=== PATIENT | male | born 1965 | race African-American/Black ===

== ENCOUNTER 2024-08-16 19:45 | Emergency (ER) | payer MEDICAID, SELFPAY ==
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
[2024-08-16 20:18] VITALS: BP 130/80; PULSE 98; RESP 16; TEMP 36.9; O2SAT 97; BMI 27.3
--- NOTE | 2024-08-16 22:03 | PC.NURSE ---
Pt currently in MRI
[2024-08-16 22:52] VITALS: BP 133/75; PULSE 76; RESP 16; TEMP 36.7; O2SAT 98
--- NOTE | 2024-08-16 22:52 | PC.NURSE ---
Pt back from MRI, sitting up on stretcher, continues to c/o bilat arm numbness/tingling, awaiting MRI results.
[2024-08-16 23:17] VITALS: BP 140/85; PULSE 70; RESP 17; TEMP 36.8; O2SAT 100
== END 2024-08-16 23:18 | disposition home or self-care (01) ==
PROVIDERS: Emergency Provider Emergency Medicine; PCP Internal Medicine
DX: S16.1XXA Strain of muscle, fascia and tendon at neck level, initial encounter (principal); S20.229A Contusion of unspecified back wall of thorax, initial encounter; V23.49XA Other motorcycle driver injured in collision with car, pick-up truck or van in traffic accident, initial encounter; R20.2 Paresthesia of skin; Y93.89 Activity, other specified; Y92.414 Local residential or business street as the place of occurrence of the external cause; Y99.9 Unspecified external cause status
CPT/HCPCS: 72040; 72141; 73130; 99284; 99285

== ENCOUNTER → 2024-08-16 20:22 | Outpatient (BNV) | payer MEDICAID, SELFPAY | PROVIDERS: Emergency Provider Emergency Medicine; PCP Internal Medicine; Visit Provider Specialist | DX: M50.322 Other cervical disc degeneration at C5-C6 level (principal); M79.641 Pain in right hand | CPT/HCPCS: 72040; 72141; 73130 ==

== ENCOUNTER 2024-12-07 16:33 | Outpatient (REF) | payer MEDICAID, SELFPAY ==
--- OUTSIDE RECORDS SUMMARY | 2020-02-22 04:38 | XMS_ITS | Continuity of Care Document ---
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 [address] [place] [address], [id number], [place]. tel:[phone] Family History Family Member Type Diagnosis Age At Onset No Information Payers Payer name Insurance type Covered green party ID Authoraurea valjuan alberto(s) D General Assistance [id number] Social History Type Description Quantity Date Captured Comments Sex Male Smoking Status No Information Sexual Orientation Straight or heterosexual Feb Gender Identity Male Chief Complaint And Reason For Visit No Information Plan Of Treatment Date Type Action Status Goal FOBT. Due on due Goal Colorectal cance r screen, stool DNA QuARTS with hemoglobin GISSEL. Due on due Goal Diabetes Screening. Due on D due Goal Depression screening. Due on due Goal HIV-1 AG W/HIV-1 & HIV-2 AB. Due on due Goal Lipid Panel. Due on due Goal Annual PE. Due on 0 due Goal Colonoscopy. Due on due Goal HEPATITIS C AB TEST. Due on due Goal BMI counseling d ocumented in Health Promotion Plan. Due on due History Of Present Illness Encounter Date Complaint History Of Prese nt Illness No Information Instructions Date Instruction Additional Infor mation No Information Assessments Type Assessment Date No Information
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
[2024-12-07 16:51] LABS: MANUAL DIFF FLAG NO
[2024-12-07 17:48] LABS: Hematocrit 41.3 % (42.0-52.0); Hemoglobin 14.3 g/dl (14.0-18.0); Imm Gran Abs Auto 0.01 X10*3/uL (0.00-0.03); Imm Gran Pct Auto 0.2 % (0.0-0.4); Lymphocytes Absolute Auto 2.0 X10*3/uL (1.2-4.9); Mean Corpuscular HGB Conc 34.6 g/dl (31.0-36.0); Mean Corpuscular Hemoglobin 31.2 pg (27.0-33.0); Mean Corpuscular Volume 90.2 fL (80.0-98.0); NRBC Abs Auto 0.020 X10*3/uL (0.0-0.012); NRBC Pct Auto 0.4 /100WBC (0.0-0.2); Platelet Count 227 X10*3/uL (160-400); Red Blood Count 4.58 X10*6/uL (4.60-5.80); White Blood Count 5.7 X10*3/uL (4.8-10.8)
[2024-12-07 18:26] LABS: Alanine Aminotransferase 19 U/L (0-40); Albumin Level 4.4 g/dL (3.5-5.0); Alkaline Phosphatase 71 U/L (39-117); Anion Gap 10 (12-20); Aspartate Amino Transferase 38 U/L (5-37); Blood Urea Nitrogen 13 mg/dL (9-16); Calcium 9.1 mg/dL (8.4-10.2); Carbon Dioxide 28 mmol/L (22-29); Chloride 107 mmol/L (96-108); Cholesterol 151 mg/dL (<200); Estimated Glomerular Filt Rate > 60; HDL Cholesterol 47 mg/dL (>40); Potassium 4.3 mmol/L (3.3-5.1); Sodium 141 mmol/L (135-145); Total Protein 7.2 g/dL (6.5-8.0); Triglycerides 132 mg/dL (<150)
--- OUTSIDE RECORDS SUMMARY | 2024-12-07 18:34 | XMS_ITS | Encounter Summary ---
Author Organization [employer] Address [address] [place] [address] [place] [address] Care Team Providers Care Telegraph Plant Maintainer Name Role Phone Natalee Gannon MD Primary Care Provider [phone] Reason for Visit * Reason Comments Care Coordination CHW outreach for SDO H food needs-referral completed Encounter Details Date Type Department Care Team (Latest Contact Info) Description 12/07/2024 Patient Outreach [facility] [address] [place] [address] Natalee Gannon MD [address] [place] [phone] Care Coordination (CHW outreach for SDOH food needs-referral completed /) Social History Tobacco Use Types Packs/Day Years Used Date Smoking Tobacco: Every Day Cigarettes 1 45.8 Started: 1977 Smokeless Tobacco: Former Alcohol Use Standard Drinks/Week Comments Not Currently [...] is your housing situation today? I have axel ghosh 12/07/[address] you [...] AM EDT documented as of this encounter Functional Status * Over the [...] than half the days 12/07/2024 11:45 AM FABIOLAT Ibeth De León MA * Trouble falling [...] 12/07/2024 11:45 AM Ray Can MA * Feeling bad about yourself - [...] as of this encounter Progress Notes * Lb Nails - 12/07/2024 12:11 PM EDT [facility] [place] outbound call to patient for assistance with SDOH as a referral was received by the provider. Patient's name and were confirmed. Patient screened positive for the following SDOH food insecurities. CHW referral patient to the local list of pantries in the area for help. Patient verbalizes understanding, and able to agree with plan to follow up. Patient educated on ex tended clinic hours on Mondays through Wednesdays, and Walk-In Urgent Care Located in [facility].Patient provided with after-hours line for [facility], , which offer night time triage serviceand option to transfer to court commissioner provider if needed. documented in this encounter Plan of Treatment Upcoming Encounters Date Type Department Care Team (Late st Contact Info) Description 01/07/2025 10:45 AM EST Office Visit [facility] MED & PEDS [address] [place] [address] Natalee Gannon MD [address] [place] [address] documented as of this encounter Visit Diagnoses Not on filedocumented in this encounter Additional Health Concerns Assessment Noted Time PHQ-9 Depression Total Score: 13 025 11:45 AM EDT documented as of this encounter Care Teams Telegraph Plant Maintainer Relationship Specialty Start Date End Date Natalee Gannon MD [address] [place] [address] PCP - General Internal Medicine 12/07/24 documented as of this encounter
--- OUTSIDE RECORDS SUMMARY | 2024-12-07 18:34 | XMS_ITS | Clinical Summary ---
Author Organization [facility] Address [address] [place] [address] Care Team Providers Care Money Counter Name Role Phone Unavailable Primary Care Provider Unavailabl e Social History Tobacco Use Types Packs/Day Years Used Date Smoking Tobacco: Never Assessed Sex and Gender Information Value Date Recorded Sex Assigned at Not on file Legal Sex Male 11:22 AM EST Gender Identity Not on file Sexual Orientation Not on file Plan of Treatment Health Maintenance Due Date Last Done Comments DTaP,Tdap,and Td Vaccines (1 - Tdap) 12/26/1986 Hepatitis B Vaccines (1 of 3 - 19+ 3-dose series) 12/26/1986 Pneumococcal Vaccine: 50+ Ye ars (1 of 1 - PCV) 12/26/2017 Zoster Vaccines (1 of 2) 12/26/2017 Depression Screening 03/04/2024 COVID-19 Vaccine (1 - 2023-2 5 season) 2024 Influenza Vaccine (#1) 2024 RSV Immunization Adult Patie nts (1 - 1-dose 75+ series) 12/26/2042 HIB Vaccines Aged Out No longer eligi ble based on patient's age to complete this topic HPV Vaccines Aged Out No longer eligi ble based on patient's age to complete this topic Hepatitis A Vaccines Aged Out No long er eligible based on patient's age to complete this topic IPV Vaccines Aged Out No longer eligi ble based on patient's age to complete this topic MMR Vaccines Aged Out No longer eligi ble based on patient's age to complete this topic Meningococcal ACWY Vaccine Aged Out N o longer eligible based on patient's age to complete this topic Meningococcal B Vaccine Aged Out No l onger eligible based on patient's age to complete this topic RSV Immunization Patients Un tammi 20 months Aged Out No longer eligible b ased on patient's age to complete this topic Varicella Vaccines Aged Out No longer eligible based on patient's age to complete this topic
--- OUTSIDE RECORDS SUMMARY | 2024-12-07 18:35 | XMS_ITS | Encounter Summary ---
Author Organization [employer] Address [address] [place] [address] [address] [place] [address] Care Team Providers Care Patient Portal Concierge Name Role Phone Natalee Gannon MD Primary Care Provider [phone] Encounter Details Date Type Department Care Team (Latest Contact Info) Description 12/07/2024 Travel Social History Tobacco Use Types Packs/Day Years [...] AM FABIOLAT Ibeth De León MA * Feeling down, depressed, or hopeless Answer Date of Assessment Author More than half the days 12/07/2024 11:45 AM Ibeth Can MA * Trouble falling or staying asleep, or sleeping too much Answer Date of Assessment Author Nearly every day 12/07/2024 11:45 AM Ibeth Can MA * Feeling tired or having little energy Answer Date of Assessment Author More than half the days 12/07/2024 11:45 AM Ibeth Can MA * Poor appetite or overeating Answer [...] Assessment Author Several days 12/07/2024 11:45 AM EDT Ray De León MA * Moving or speaking so slowly that other people could have noticed? Or the opposite - being so fidgety or restless that you have been moving around a lot more than usual. Answer Date of Assessment Author More than half the days 12/07/2024 11:45 AM EDT Ibeth De León MA * Thoughts that you would be better off or hurting yourself in some way Answer Date of Assessment Author Not at all 12/07/2024 11:45 AM EDT Ray De León MA * Patient Health Questionnaire-9 Score Answer Date of Assessment Author 13 12/07/2024 11:45 AM EDT Ray De León MA * How difficult have these problems made it for you to do your work, take care of things at home, or get along with other people? Answer Date of Assessment Author Extremely difficult 12/07/2024 11:45 AM EDT Ibeth Coyle MA documented as of this encounter Plan of Treatment Upcoming Encounters Date Type Department Care Team (Late st Contact Info) Description 01/07/2025 10:45 AM EST Office Visit [facility] MED & PEDS [address] [place] [address] Natalee Gannon MD [address] [place] [address] documented as of this encounter Visit Diagnoses Not on filedocumented in this encounter Additional Health Concerns Assessment Noted Time PHQ-9 Depression Total Score: 13 025 11:45 AM EDT documented as of this encounter Care Teams Patient Portal Concierge Relationship Specialty Start Date End Date Natalee Gannon MD [address] [place] [address] PCP - General Internal Medicine 12/07/24 documented as of this encounter
--- OUTSIDE RECORDS SUMMARY | 2024-12-07 18:35 | XMS_ITS | Encounter Summary ---
Author Organization [employer] Address [address] [place] [address] 7 [place] [address] Care Team Providers Care Boats Renter Name Role Phone Natalee Gannon MD Primary Care Provider [phone] Encounter Details Date Type Department Care Team ([facility] st Contact Info) Description 12/07/2024 Telephone [facility] MED & PEDS [address] [place], [place] [phone] Natalee Gannon MD [address] [place] [address] Social History Tobacco Use Types Packs/Day Years [...] the past 12 months, has t he [employer], gas, oil or water company threatened to [...] Author Nearly every day 12/07/2024 11:45 AM FABIOLAT Ibeth De León MA * Feeling tired or having little energy Answer Date of Assessment Author More than half the days 12/07/2024 11:45 AM FABIOLAT Ibeth De León MA * Poor appetite or overeating Answer Date of Assessment Author Not at all 12/07/2024 11:45 AM EDT Ray De León MA * Feeling bad about yourself - or that you are a failure or have let yourself or your family down Answer Date of Assessment Author Several days 12/07/2024 11:45 AM EDT Ray De León MA * Trouble concentrating on things, such [...] Coyle MA documented as of this encounter Miscellaneous Notes * Telephone Encounter - Ibeth De León MA - 12/07/2024 11:46 AM EDT food documented in this encounter Plan of Treatment Upcoming Encounters Date Type Department Care Team ([facility] st Contact Info) Description 01/07/2025 10:45 AM EST Office Visit [facility] MED & PEDS [address] [place] [address] Natalee Gannon MD [address] [place] [address] documented as of this encounter Visit Diagnoses Not on filedocumented in this encounter Additional Health Concerns Assessment Noted Time PHQ-9 Depression Total Score: 13 025 11:45 AM EDT documented as of this encounter Care Teams Boats Renter Relationship Specialty Start Date End Date Natalee Gannon MD [address] [place] [phone] PCP - General Internal Medicine 12/07/24 documented as of this encounter
--- OUTSIDE RECORDS SUMMARY | 2024-12-07 18:35 | XMS_ITS | Encounter Summary ---
Author Organization [employer] Address [address] [place] [address] [place] [address] Care Team Providers Care Oxyacetylene Torch Operator Name Role Phone Natalee Gannon MD Primary Care Provider [phone] Reason for Visit * Reason Onset Date Comments Medication Question 12/07/2024 Encounter Details Date Type Department Care Team ([facility] st Contact Info) Description 12/07/2024 Telephone [facility] [address] [place] [address] Natalee Gannon MD [address] [place] [phone] Medication Question Social History Tobacco Use Types Packs/Day Years [...] days 12/07/2024 11:45 AM EDT Ray De Lenó [place] * Moving or speaking so slowly [...] of Assessment Author 13 12/07/2024 11:45 AM FABIOLAT Ray De León [place] * How difficult have these problems made it for you to do your work, take care of things at home, or get along with other people? Answer Date of Assessment Author Extremely difficult 12/07/2024 11:45 AM EDT Ibeth Coyle MA documented as of this encounter Miscellaneous Notes * Telephone Encounter - Beni Quintana - 12/07/2024 4:28 PM EDT Tc from pt calling in regards to medication prescribed today by pcp stating they were sent to the wrong pharmacy, pt would like it sent to [facility] - [place] - [address] [place] [address]. Medication: Blood Pressure kit diclofenac (Cataflam) 50 MG tablet tiZANidine (Zanaflex) 4 MG tablet If any questions you can contact pt at [phone]. documented in this encounter Plan of Treatment Upcoming Encounters Date Type Department Care Team (Late st Contact Info) Description 01/07/2025 10:45 AM EST Office Visit [facility] [address] [place] [address] Natalee Gannon MD [address] [place] [address] documented as of this encounter Visit Diagnoses Not on filedocumented in this encounter Additional Health Concerns Assessment Noted Time PHQ-9 Depression Total Score: 13 025 11:45 AM EDT documented as of this encounter Care Teams Oxyacetylene Torch Operator Relationship Specialty Start Date End Date Natalee Gannon MD [address] [place] [address] PCP - General Internal Medicine 12/07/24 documented as of this encounter
--- OUTSIDE RECORDS SUMMARY | 2024-12-07 18:35 | XMS_ITS | Clinical Summary ---
Author Organization [employer] Address [address] [place] [address] 7 [place] [address] Care Team Providers Care Transport Coordinator Name Role Phone Natalee Gannon MD Primary Care Provider [phone] Allergies No known active allergies Medications * This document contains information received from the source organization and may not represent a complete record from that organization. Blood Pressure kitIndications:El evated BP without diagnosis of hypertension To check the BP Daily 1 kit 12/07/2024 Active diclofenac (Cataflam) 50 MG tabletIndications :Acute midline low back pain without sciatica Take 1 tablet (50 mg) by mouth 2 times daily. 20 tablet 11 12/07/2024 12/08/19 26 Active tiZANidine (Zanaflex) 4 MG tabletIndications :Acute midline low back pain without sciatica Take 1 tablet (4 mg) by mouth every 6 (six) hours if needed for muscle spasms for up to 10 days. 30 tablet 12/07/2024 12/18/19 25 Active Hospital, Clinic, or Other Facility Administered Medication Ordered Dose Route Frequency Start Date End Date Status ketorolac (Toradol) injection 30 mgIndications:Acute midline low back pain without sciatica 30 mg IM Once 12/07/2024 12/07/2024 Ended Active Problems Problem Noted Date Diagnosed Date Severe major depression (CMS/HCC) 12/03/2024 Anxiety 12/03/2024 PTSD (post-traumatic stress disorder) 12/03/2024 History of incarceration 12/03/2024 Encounters * This document contains information received from the source organization and may not represent a complete record from that organization. Date Type Department Care Team Description 12/07/2024 10:15 AM EDT Office Visit [facility] [address] [place] [address] Natalee Gannon MD Acute midline low back pain without sciatica (Primary Dx); Anxiety; Elevated BP without diagnosis of hypertension; Screening for colon cancer 12/07/[address] [address] Natalee Gannon MD Medication Question 12/07/2024 Patient Outreach [address] [phone] Natalee Gannon MD Care Coordination ([facility] outreach for SDOH food needs-referral completed /) 12/07/2024 Telephone [facility] [address] [place] [address] Natalee Gannon MD 12/07/2024 Travel 12/01/2024 Patient Outreach [address] [address] Natalee Gannon MD Care Coordination ([facility] outreach for SDOH housing search-referral completed ) 12/01/2024 Patient Outreach [address] [address] Matt Cespedes MD Pre-visit Planning (SDOH screening negative and Tobacco screening positive. ) 11/24/2024 5:00 PM EDT Office Visit [facility] [address] [place] [address] Milly Price, SAILAJA Cough in adult patient (Primary Dx); Anxiety 11/24/2024 Travel 11/24/2024 Telephone [facility] [address] [place] [address] Natalee Gannon MD [facility] - New Patient Assistance 11/12/2024 Telephone [facility] [address] [place], [place] [phone] Twyla Arriaga, RN PCP Contact 11/11/2024 Telephone [facility] [address] [place], [place] [phone] Natalee Gannon MD CHART PREP 11/05/2024 Telephone [facility] [address] [place], [place] [phone] Natalee Gannon MD from Last 3 Months Family History Medical History Relation Name Comments Diabetes type I Child Breast cancer Mother Relation Name Status Comments Child Alive Mother Social History Tobacco Use Types Packs/Day Years [...] Orientation Straight 01/01/2022 10 :33 AM EDT Last Filed Vital Signs Vital Sign Reading Time Taken Comments Blood Pressure 144/92 12/07/2024 10:32 AM EDT Pulse 111 12/07/2024 10:32 AM EDT Temperature 36.7 C (98 F) 11/24/2024 4:56 PM EDT Respiratory Rate 20 12/07/2024 10:32 AM EDT Oxygen Saturation 98% 12/07/2024 10:32 AM EDT Inhaled Oxygen Concentration - - Weight 65.3 kg (144 lb) 12/07/2024 10:32 AM EDT Height 162.6 cm (5' 4 ) 12/07/2024 10:32 AM EDT Body Mass Index 24.72 12/07/2024 10:32 AM EDT Plan of Treatment Upcoming Encounters Date Type Department Care Team (Late st Contact Info) Description 01/07/2025 10:45 AM EST Office Visit [facility] [address] [place] [address] Natalee Gannon MD [address] [place] [address] Health Maintenance Due Date Last Done Comments CT Colonography 1967 Colonoscopy 1967 Colorectal Cancer Screening 1967 FIT DNA/Cologuard 1967 FIT 1967 FOBT 1967 HIV Screening 1967 Lipid Panel 1967 12/07/2024 Sigmoidoscopy 1967 Hepatitis C Screening 12/26/1985 Hepatitis B Vaccines (1 of 3 - 19+ 3-dose series) 12/26/1986 Pneumococcal Vaccine: 50+ Years (1 of 2 - PCV) 12/26/1986 Lung Cancer Screening 12/26/2017 Zoster Vaccines (1 of 2) 12/26/2017 COVID-19 Vaccine (1 - 2023-2 5 season) 2024 Depression Monitoring 06/07/2025 12/07/2024 , 12/07/2024 Influenza Vaccine (#1) 2025 Postp oned from 11/02/2024 (Patient Refused) Alcohol/Substance Use Screening 12/07/2025 12/07/2024 Disability Screening 12/07/2025 12/07/2024 SDOH Screening 12/07/2025 12/07/2024 Tobacco Screening 12/07/2025 12/07/2024 DTaP/Tdap/Td Vaccines (2 - T d or Tdap) 07/04/2027 07/03/2017 RSV Patients and Patients Aged 60 years or older (1 - 1-dose 75+ series) 12/26/2042 HIB [...] patient's age to complete this topic Meningococcal Vaccine Aged Out No contreras margarita eligible based on patient's age to complete this topic RSV under 20 months Aged Out No longe r eligible based on patient's age to complete this topic Rotavirus Vaccines Aged Out No longer eligible based on patient's age to complete this topic Procedures Procedure Name Priority Date/Time Associated Diagnosis Comments LIPID PANEL, STANDARD Routine 12/07/2024 4:48 PM EDT Elevated BP without diagnosis of hypertension COMPREHENSIVE METABOLIC PANEL Routine 12/07/2024 4:48 PM EDT Elevated BP without diagnosis of hypertension CBC WITH AUTO DIFFERENTIAL Routine 12/07/2024 4:48 PM EDT Elevated BP without diagnosis of hypertension POCT INFLUENZA A (ID NOW RAPID MOLECULAR) Routine 11/24/2024 5:06 PM EDT Cough in adult patient POCT INFLUENZA B (ID NOW RAPID MOLECULAR) Routine 11/24/2024 5:05 PM EDT Cough in adult patient POCT RAPID COVID ANTIGEN Routine 11/24/2024 5:03 PM EDT Cough in adult patient POC HOUSE ID NOW STREP A Routine 11/24/2024 5:02 PM EDT Cough in adult patient from Last 3 Months Results * (ABNORMAL) CBC auto differential (12/07/2024 4:48 PM EDT) White Blood Count 5.7 4.8 - 10.8 X10*3/uL [facility] Red Blood Count 4.58(L) 4.60 - 5.80 X10*6/uL [facility] Hemoglobin 14.3 14.0 - 18.0 g/dl [facility] Hematocrit 41.3(L) 42.0 - 52.0 % [facility] Mean Corpuscular Volume 90.2 80.0 - 98.0 fL [facility] Mean Corpuscular Hemoglobin 31.2 27.0 - 33.0 pg [facility] Mean Corpuscular HGB Conc 34.6 31.0 - 36.0 g/dl [facility] Red Cell Distribution Width 12.6 11.0 - 16.0 % [facility] Platelet Count 227 160 - 400 X10*3/uL [facility] Mean Platelet Volume 9.9 9.4 - 12.4 fL [facility] Neutrophils Percent Auto 49.3 45 - 73 % [facility] Imm Gran Pct Auto 0.2 0.0 - 0.4 % [facility] Lymphocytes Percent Auto 35.8 20 - 40 % [facility] Monocytes Percent Auto 9.6 2 - 11 % [facility] Eosinophils Percent Auto 4.4(H) 0 - 4 % [facility] Basophils Percent Auto 0.7 0 - 2 % [facility] NRBC Pct Auto 0.4(H) 0.0 - 0.2 /100WBC [facility] Neutrophils Absolute Auto 2.8 2.0 - 8.3 x10*3/uL [facility] Imm Gran Abs Auto 0.01 0.00 - 0.03 X10*3/uL [facility] Lymphocytes Absolute Auto 2.0 1.2 - 4.9 X10*3/uL [facility] Monocytes Absolute Auto 0.6 0.1 - 1.2 X10*3/uL [facility] Eosinophils Absolute Auto 0.3 0.0 - 0.4 X10*3/uL [facility] Basophils Absolute Auto 0.0 0.0 - 0.2 X10*3/uL [facility] NRBC Abs Auto 0.020(H) 0.0 - 0.012 X10*3/uL [facility] Blood Venous blood specimen / Unknown 12/07/2024 4:48 PM EDT 12/07/2024 4:48 PM EDT us Natalee Gannon MD LAB BLOOD ORDERABLES Final Result Performing Organization Address [facility]/ZIP Co de Phone Number [facility] [address] [place] [phone] * POCT Rapid Influenza A HOUSE ID NOW (11/24/2024 5:06 PM EDT) Influenza A Negative Negative, Indeterminate [facility] QC Media Lot # [id number] [facility] Lot# Expiration Date [facility] Swab 11/24/2024 5:06 PM EDT us Milly DIALLOP POINT OF CARE TEST ENTER/EDIT O RDERABLES Final Result [facility] [address] [place] [phone] * POCT Rapid Influenza B HOUSE ID NOW (11/24/2024 5:05 PM EDT) Influenza B Negative Negative, Indeterminate [facility] QC Media Lot # [id number] [facility] Lot# Expiration Date [facility] Swab 11/24/2024 5:05 PM EDT [facility] ENTER/EDIT O RDERABLES Final Result [facility] [address] [place] [address] [phone] * POCT Rapid Covid-19 BinaxNOW (11/24/2024 5:03 PM EDT) Pathologist [facility] Rapid COVID Ag Negative QC Media Lot # [id number] Lot# Expiration Date 8,326 Swab 11/24/2024 5:03 PM EDT [facility] POINT OF [facility]ARE TEST ENTER/EDIT O RDERABLES Final Result * POCT Rapid Strep A HOUSE ID NOW (11/24/2024 5:02 PM EDT) [facility] Rapid Strep A Screen Negative Negative, None Detected QC Media Lot # [id number] Lot# Expiration Date [address] Swab 11/24/2024 5:02 PM EDT [facility] PO[facility]ARE TEST ENTER/EDIT O RDERABLES Final Result from Last 3 Months Insurance [facility] C3 Care Teams Transport Coordinator Relationship Specialty Start Date End Date Natalee Gannon MD [address] [place] [phone] PCP - General Internal Medicine 12/07/24
[2024-12-08 08:29] LABS: HIV Num 1 0.06 S/CO (0.00-0.99); ~HepC Num1 0.09 S/CO (0.00-0.79); ~Hepatitis C Antibody Nonreactive (Nonreactive)
== END 2024-12-07 16:34 | disposition home or self-care (01) ==
LOC: HO.XRAY 16:33
PROVIDERS: PCP Internal Medicine; Visit Provider Internal Medicine
DX: R03.0 Elevated blood-pressure reading, without diagnosis of hypertension (principal); M54.50 Low back pain, unspecified; Z11.4 Encounter for screening for human immunodeficiency virus [HIV]; Z11.59 Encounter for screening for other viral diseases
CPT/HCPCS: 36415; 72110; 80053; 80061; 84443; 85025; 86803; 87389

== ENCOUNTER → 2024-12-07 16:51 | Outpatient (BNV) | payer MEDICAID, SELFPAY | PROVIDERS: PCP Internal Medicine; Visit Provider Student in an Organized Health Care Education/Training Program | DX: M54.50 Low back pain, unspecified (principal); V00.148A Other scooter (nonmotorized) accident, initial encounter | CPT/HCPCS: 72110 ==